=== PATIENT | female | born 1965 | race Caucasian/White ===

== ENCOUNTER 2018-07-29 17:40 | Emergency (ER) | payer MEDICAID ==
[~2018-07-29] VITALS: Ht 154.9 cm; Wt 63.6 kg
[2018-07-29 20:00] VITALS: BP 111/73
[2018-07-29] MEDS ORDERED: ketorolac tromethamine 15mg/ml inj. IM ONE ×2 (20:20→20:40)
[2018-07-29] MEDS ORDERED: ORPH100T2 PO (20:40)
[2018-07-29] MEDS ORDERED: orphenadrine citrate 60mg/2ml inj. IM ONE (20:40)
[2018-07-29] MEDS ORDERED: NAPR-56 PO (20:40)
== END 2018-07-29 20:55 | disposition home or self-care (01) ==
LOC: ER 17:41
DX: M54.5 Low back pain (principal); M25.552 Pain in left hip; R10.32 Left lower quadrant pain; M25.562 Pain in left knee; Z88.1 Allergy status to other antibiotic agents
CPT/HCPCS: 73502; 96372; 99283; J1885; J2360